=== PATIENT | female | born 1965 | race Two or more races ===

== ENCOUNTER → 2017-06-15 | Outpatient (REF) | payer OTHER, BC | LOC: M SFHCWAGY 09:21 | PROVIDERS: ATTEND Nurse Practitioner Women's Health | DX: Z12.4 Encounter for screening for malignant neoplasm of cervix (principal); N95.1 Menopausal and female climacteric states ==

== ENCOUNTER → 2017-06-15 | Outpatient (CLI) | payer BC | LOC: M WHC 09:09 | PROVIDERS: ATTEND Nurse Practitioner Women's Health | DX: Z12.31 Encounter for screening mammogram for malignant neoplasm of breast (principal) ==

== ENCOUNTER → 2017-06-28 | Outpatient (REF) | payer OTHER, BC | LOC: M SFHCWAGY 15:26 | PROVIDERS: ATTEND Nurse Practitioner Women's Health | DX: R87.612 Low grade squamous intraepithelial lesion on cytologic smear of cervix (LGSIL) (principal); R87.810 Cervical high risk human papillomavirus (HPV) DNA test positive ==

== ENCOUNTER → 2017-10-25 | Outpatient (REF) | payer OTHER, BC | LOC: M LAB REF 17:22 | DX: N72 Inflammatory disease of cervix uteri (principal) | CPT/HCPCS: 88307 ==

== ENCOUNTER → 2018-12-21 | Outpatient (REF) | payer OTHER, BC ==
[2018-12-24 00:07] LABS: HPV HYBRID CAPTURE II Positive (Negative)
== END ==
LOC: M LAB REF 17:01
PROVIDERS: ATTEND Obstetrics & Gynecology
DX: Z12.4 Encounter for screening for malignant neoplasm of cervix (principal); R87.615 Unsatisfactory cytologic smear of cervix
CPT/HCPCS: 87624; G0123

== ENCOUNTER → 2019-09-26 | Outpatient (REF) | payer OTHER, BC | LOC: M PLALAB 12:16 | PROVIDERS: ATTEND Obstetrics & Gynecology | DX: R87.610 Atypical squamous cells of undetermined significance on cytologic smear of cervix (ASC-US) (principal) | CPT/HCPCS: 87624; G0123 ==

== ENCOUNTER → 2019-10-20 | Outpatient (REF) | payer OTHER, BC | LOC: M SFHCWAGY 16:48 | PROVIDERS: ATTEND Obstetrics & Gynecology | DX: R87.810 Cervical high risk human papillomavirus (HPV) DNA test positive (principal) ==

== ENCOUNTER → 2019-12-12 | Outpatient (CLI) | payer OTHER, BC | LOC: M LABSMTC 09:41 | PROVIDERS: ATTEND Anesthesiology | DX: Z01.818 Encounter for other preprocedural examination (principal); Z11.59 Encounter for screening for other viral diseases | CPT/HCPCS: C9803; U0003 ==

== ENCOUNTER 2019-12-15 07:52 | Day surgery (SDC) | payer BC, OTHER ==
[~2019-12-15] VITALS: Ht 157.5 cm; Wt 84.1 kg
[~2019-12-15 07:52] MED LIST: LR 1,000 ML IV ONE; ceFAZolin SOD 2 GM in IV 1 EA IV ONE
[2019-12-15 08:31] LABS: HEMATOCRIT 42.6 % (36.0-47.0); HEMOGLOBIN 14.3 g/dl (12.0-15.5); MEAN CORPUSCULAR HEMOGLOBIN 32.2 pg (27.0-33.0); MEAN CORPUSCULAR HGB CONC 33.6 g/dl (32.0-36.5); MEAN CORPUSCULAR VOLUME 95.9 fl (80.0-96.0); PLATELET COUNT, AUTOMATED 296 10^3/uL (150-450); RED BLOOD COUNT 4.44 10^6/uL (4.00-5.40); WHITE BLOOD COUNT 6.7 10^3/uL (4.0-10.0)
[2019-12-15] MEDS ORDERED: BUPIVACAINE HCL 0.25% 30ML VIAL As Ordered ONE (09:51)
[2019-12-15] MEDS ORDERED: SUGAMMADEX SODIUM 500 MG/5 ML VIAL (BRIDION) As Ordered ONE (10:22)
[2019-12-15] MEDS ORDERED: propofoL 200 MG/20 ML VIAL As Ordered ONE (10:22)
[2019-12-15] MEDS ORDERED: fentaNYL 100 MCG/2 ML INJECTION (J3010) As Ordered ONE (10:22)
[2019-12-15] MEDS ORDERED: LIDOCAINE 2% 100MG/5ML SDV (FOR ANES.) As Ordered ONE (10:22)
[2019-12-15] MEDS ORDERED: KETOROLAC 60MG 2ML VIAL As Ordered ONE (10:22)
[2019-12-15] MEDS ORDERED: dexameTHASONE 4 MG/ML 1ML VIAL (J1100 PER 1MG) As Ordered ONE (10:22)
[2019-12-15] MEDS ORDERED: HYDROmorphone HCL 2 MG/ML 1ML VIAL (J1170) As Ordered ONE (10:22)
[2019-12-15] MEDS ORDERED: ROCURONIUM BROMIDE 50 MG/5 ML VIAL As Ordered ONE ×2 (10:22→11:07)
[2019-12-15] MEDS ORDERED: MIDAZOLAM INJ 2MG/2ML VIAL (J2250 PER 1MG) As Ordered ONE (10:22)
[2019-12-15] MEDS ORDERED: ePHEDrine SULFATE 25 MG/5 ML(5MG/ML) SYRINGE As Ordered ONE (10:42)
[2019-12-15] MEDS ORDERED: ONDANSETRON 4MG/2ML VIAL As Ordered ONE (10:46)
[2019-12-15] MEDS ORDERED: PERCOCET 5MG/325MG TAB PO PRN (12:00)
[2019-12-15] MEDS ORDERED: LR 1,000 ML IV SCH (12:00)
[2019-12-15] MEDS ORDERED: HYDROMORPHONE HCL 0.5 MG/ 0.5 ML SYRINGE (J1170 PER 1) IV PRN (12:00)
[2019-12-15] MEDS ORDERED: ONDANSETRON 4MG/2ML VIAL IV PRN (12:00)
[2019-12-15] MEDS ORDERED: fentaNYL 100 MCG/2 ML INJECTION (J3010) IV PRN (12:00)
[2019-12-15] MEDS ORDERED: oxyCODONE 5MG TAB PO PRN (12:00)
--- NOTE | 2019-12-15 12:07 | ROOPDOC ---
[facility] Report Of Operation Report of Operation DATE OF PROCEDURE: 12/15/19 PREPROCEDURE DIAGNOSES: 1. Persistent severe squamous dysplasia (PRECIOUS III) POSTPROCEDURE DIAGNOSES: 1. Persistent severe squamous dysplasia (PRECIOUS III) PROCEDURES PERFORMED: 1. Robotic-assisted laparoscopic hysterectomy. 2. Bilateral salpingectomy. 3. Cystoscopy. SURGEON: Doug Mireles MD TIME STUDY ENGINEER: LAYA He ANESTHESIA: General endotracheal anesthesia. ESTIMATED BLOOD LOSS: 50 mL. INTRAVENOUS FLUIDS: 1700 mL lactated Ringer solution. URINE OUTPUT: 100 mL. PREPROCEDURE ANTIBIOTICS: 2 g of Ancef OPERATIVE FINDINGS: The patient with normal-appearing bilateral adnexa, uterus SPECIMEN: Uterus, cervix, bilateral fallopian tubes and para tubal cyst. CYSTSCOPIC FINDING: Normal bladder mucosa, no foreign objects. Bilateral ureteral jets were observed. DESCRIPTION OF PROCEDURE: After informed consent was obtained and written consent was reviewed, the patient was brought to the operating room, where general endotracheal anesthesia was obtained. She was then placed in lithotomy position, was prepped and draped in a normal sterile fashion. A time-out in the operating room was then performed, identifying the patient, procedure to be performed, as well as drug allergies. A speculum was then placed, revealing the cervix. The anterior and posterior aspects of the cervix were stitched with a 0 Vicryl. The uterus was then sounded to 8cm. A large [employer] uterine manipulator was then advanced through the cervical os for means to manipulate the uterus. The cervical cap was applied over the cervix, as well as the vaginal sleeve applied into the vagina. The speculum was removed from the patients vagina. A Arrington catheter was then placed and set to gravity. Gloves were changed, and attention was turned to the patients abdomen, where a Veress needle was placed through the umbilicus. A pneumoperitoneum was then obtained with CO2 gas. The supraumbilical area was infused with 0.25% Marcaine. An incision was made in this area, and a 8 mm trocar and sleeve was advanced through this incision. The laparoscope was then replaced, revealing intra-abdominal placement. Three additional port sites were placed, two to the left side of the patient's abdomen and one to the right. These areas was infused with 0.25% Marcaine. Each one of these areas, incisions were made, and 8 mm trocars and sleeves advanced through each one of these incisions under direct visualization. Next, the da Parris was then docked, utilizing a camera arm and two operative arms. The patient's abdomen was then surveyed with the above-noted finding. Bilateral salpingectomies were then performed. The fallopian tubes' mesosalpinx was cauterized and ligated with hemostasis noted. Next, the uteroovarian ligaments bilateral were cauterized and ligated with good hemostasis noted. The round ligaments bilaterally were cauterized and ligated with good hemostasis noted. The anterior and posterior aspects of broad ligaments were . The anterior leaf of the broad ligament was cauterized and ligated and dissected along the bladder, creating a bladder flap. The remainder of the broad and cardinal ligaments were then cauterized and ligated with good hemostasis noted. The uterine arteries were skeletonized bilaterally and were cauterized and transected with good hemostasis noted. Anterior and posterior colpotomies were made using monopolar scissors. The uterus was then brought out through the vaginal incision. The surgical sites were inspected and noted to be hemostatic. The vaginal cuff was then closed using 2-0 V-Loc system in a running fashion. Gerson was then applied over the surgical field. The pneumoperitoneum was then released. Next, the cystoscopy was then performed. Utilizing a 70-degree cystoscope, it was advanced transurethrally through the bladder. The bladder was surveyed, showing normal bladder mucosa, no foreign bodies. The bilateral ureteral jets were observed. The cystoscope was then removed. The bladder was then drained. Gloves were changed. Attention was then turned to the patients abdomen, where all four port sites were closed with 4-0 Monocryl and dressed with Dermabond. The patient was then taken out of lithotomy position and was awakened from general anesthesia and taken to recovery in stable condition. Counts were correct. Corrie Moon, my surgical appliance fitter, played a central role in the operation. She assisted with port placement, tissue retraction and identification, as well as DOUG MIRELES MD. Dec 15, 2019 12:06
[2019-12-15 14:05] VITALS: BP 143/86
[2019-12-15] MEDS ORDERED: KETOROLAC 30 MG/ML 1ML VIAL IV PRN (17:00)
--- NOTE | 2019-12-15 21:28 | ECGEPIP ---
[facility] Test Date: 2019-12-15 Pat Name: EDMUND DOMÍNGUEZ Department: Room: - Gender: Female Voice Systems Engineer: ABBEY : 1965 Requested By: RADHA Melgar Order Number: [id number] Reading MD: Arash Funes Measurements Intervals [place] Rate: 67 P: 51 TN: 157 QRS: -25 QRSD: 93 T: 33 QT: 421 QTc: 447 Interpretive Statements SINUS RHYTHM WITH SINUS ARRHYTHMIA Poor R wave progression, POSSIBLE ANTERIOR MYOCARDIAL INFARCTION, PROBABLY OLD Left axis deviation. Borderline low limb lead voltages. No prior ECG available for comparison at the time of interpretation. Electronically Signed on 12-15-2019 21:28:32 EDT by Arash Funes
== END 2019-12-15 14:10 | disposition home or self-care (01) ==
LOC: M SDC 07:52
PROVIDERS: ATTEND Obstetrics & Gynecology
DX: D06.9 Carcinoma in situ of cervix, unspecified (principal)
CPT/HCPCS: 36415; 58571; 85027; 86850; 86900; 86901; 88307; 93005; J0690; J1100; J1170; J1885; J2250; J2405; J3010